=== PATIENT | male | born 1985 | race Caucasian/White ===

== ENCOUNTER 2022-01-16 11:25 | Emergency (ER) | payer BC ==
[2022-01-16] MEDS ORDERED: Ketorolac 30 MG/ML SDV IVPUSH ONE (11:45)
[2022-01-16 13:11] LABS: CARBON DIOXIDE,CO2 27.6 mmol/L (21.0-32.0); POTASSIUM,K 3.7 mmol/L (3.5-5.1)
[2022-01-16] MEDS ORDERED: Iopamidol 755 MG/ML 500 ML Multipack Bottle IVPUSH ONE (13:29)
== END 2022-01-16 15:38 | disposition home or self-care (01) ==
LOC: MW.ED 11:25
DX: M54.50 Low back pain, unspecified (principal)
CPT/HCPCS: 36415; 71260; 74177; 80053; 83690; 85025; 96374; 96375; 99284; J1885; J3360; Q9967